=== PATIENT | female | born 1940 | race Caucasian/White ===

== ENCOUNTER → 2016-12-07 | Outpatient (CLI) | payer MEDICARE, BC ==
[~2016-12-07] MED LIST: DULO60CA6 PO; EVISTA PO; LISINOPRIL PO; ROSU20TA PO; WELCHOL PO; ZOLP10TA5 PO
--- NOTE | 2016-12-07 15:22 | RADRPT ---
PROCEDURE: XR Pelvis and Hips. CLINICAL INDICATION: Pelvic pain. Bilateral hip pain. TECHNIQUE: Five views. Frontal pelvis. Frontal and lateral right hip. Frontal and lateral left hip. COMPARISON: No prior studies are available for comparison. FINDINGS: There are bilateral total hip arthroplasties. These appears satisfactory with no fracture, dislocat ion, or loosening. There is no lytic or blastic lesion. Surgical clips are present in the right in guinal region. There has been prior lower lumbar spine surgery with pedicle screws and connecting r ods. IMPRESSION: 1. Satisfactory postoperative appearance of both hips. 2. Prior right inguinal surgery. 3. Prior lower lumbar spine surgery. RPTAT: QQ .Harlan Sawant MD, MD Date Time Electronically viewed and signed by .Harlan Sawant MD, on 12/07/2016 15:22 .R/
--- NOTE | 2016-12-07 15:46 | PN ---
Date/Time of Note Date/Time of Note DATE: 12/07/16 TIME: 15:37 Outpatient Progress Note Chief Complaint Follow-up status post left total hip replacement and right total hip revision surgery HPI 76-year-old female presents today for follow-up status post left total hip replacement performed on 09/12/2014. Patient has also had right total hip replacement revision surgery with replacement femoral head and acetabular liner performed on 04/06/2013. In regards to the bilateral hip patient is having no pain. She does state that she has discomfort to the left side as she has a certain "weakness" and points to the greater trochanteric region. She does state also at times, she has tenderness to palpation to this region. In regards to the right side, she has radiating nerve symptoms in regards to numbness and tingling down the posterior leg. Patient has pre-existing chronic low back pain as well as spinal issues. She does confirm that about 5 years ago she has had lumbar spine multilevel fusion without fusion of the L5-S1 level. Surgery was performed by Dr. Mix. Pain on the left side is local to the buttocks/lateral greater trochanteric region. Denies any falls. Denies any recent injury. Continues to do well status post total hip replacement however. Review of Systems Const: No Fever, no chills, no Fatigue, normal appetite, no diaphoresis. Resp: No SOB, no wheezing, no chest pain. CV: No chest pain, no palpitaions, no GUSMAN. Physical Exam Blood pressure is 154/83, temperature is 90, pulse is 94, respiratory rate is 12, height is 5 feet 4 inches, weight is 145 pounds. General Appearance: well-developed, well-nourished, in no acute distress. Right hip: Full range of motion with active extension, flexion, adduction and abduction. No tenderness to palpation to the groin region. No pain to the greater trochanteric region. 4+/5 strength to the hip flexors with 5/5 strength to the hip extensors, abductors and adductors. Decreased sensation to the posterior lower extremity. Toes freely movable. 2+ pedal pulses. Left hip: Full range of motion with active flexion, extension, adduction and abduction. Tenderness to palpation over the greater trochanteric region. No tenderness to palpation over the buttock region. 5/5 strength to the hip flexors, extensors, adductors and abductors. Normal sensory examination to light touch. Toes freely movable with 2+ pedal pulses. Imaging: X-ray of the bilateral hip performed on 12/07/2016 showing all components appearing well aligned, attached and integrated to the bone. No signs of any lucency between metal and bone. Hardware is also visualized of the lumbar spine from previous fusion surgery. Allergies Coded Allergies: No Known Allergies (Verified Allergy, Unknown, 09/12/14) Assessment/Plan * Dr. Ventura present for exam today. Dr. Ventura is performed greater trochanteric cortisone injection for bursitis to the greater trochanter on the left side. Area was cleaned with Betadine swab. Kenalog 40 mg, and lidocaine 2 % with epinephrine 6 cc drawn out using 18-gauge needle. 6 regions of greater trochanter were patient having areas of pain were injected using 25-gauge needle. Band-Aids applied after procedure. Patient observed for 5-10 minutes after procedure. Patient doing well and then discharged. * In regards to the bilateral hips there is no ongoing complications and patient was advised to follow-up as needed. * Should patient continue with greater trochanteric bursitis, was instructed to follow-up in about 3 months for repeat injections by Dr. Ventura. * Dental prophylaxis repeated today. * Follow-up as needed Patient made aware that dental prophylaxis will be necessary prior to any dental procedure for the remainder of their lifetime. Patient is aware that they must contact their dentist prior to any procedure to inform them of previous joint replacement with prosthesis implant so appropriate antibiotic may be prescribed to lower risk of joint infection status post surgery. Card will also serve as confirmation should patient be traveling and have to go through security such as at an airport. Dr. Ventura was present during examination and agrees with plan. Medications Home Meds Reported Medications [Lisinopril] No Conflict Check, 10 MG PO DAILY 04/06/13 Zolpidem Tartrate* (Zolpidem Tartrate*) 10 Mg Tablet, 10 MG PO HS 04/06/13 Rosuvastatin Calcium* (Crestor*) 20 Mg Tablet, 20 MG PO DAILY 04/06/13 [Evista] No Conflict Check, 60 MG PO DAILY 04/06/13 Duloxetine Hcl* (Cymbalta*) 60 Mg Capsule., 60 MG PO DAILY 04/06/13 [Welchol] No Conflict Check, 625 MG PO BID 04/06/13 JOSÉ MIGUEL LEPE PA-C December 07, 2016 15:46
== END | disposition home or self-care (01) ==
LOC: HKI 14:28
DX: Z09 Encounter for follow-up examination after completed treatment for conditions other than malignant neoplasm (principal); Z96.643 Presence of artificial hip joint, bilateral; M70.60 Trochanteric bursitis, unspecified hip; M54.5 Low back pain; G89.29 Other chronic pain
CPT/HCPCS: 20610; 73522; G0463